=== PATIENT | female | born 1955 | race Caucasian/White ===

== ENCOUNTER → 2024-01-20 | Outpatient (CLI) | payer MEDICARE ==
[2024-01-20 18:25] LABS: INR 1.06 sec (0.93-1.11); Prothrombin Time 11.4 sec (9.9-11.9)
[2024-01-20 20:13] LABS: Basophils # (A) 0.03 X 10*3/uL (0.00-0.10); Basophils % (A) 0.4 %; Eosinophils # (A) 0.05 X 10*3/uL (0.04-0.35); Eosinophils % (A) 0.7 %; HCT 43.9 % (37.2-46.3); Lymphocytes # (A) 2.66 X 10*3/uL (0.90-5.00); Lymphocytes % (A) 38.6 %; MCH 30.8 pg (27.0-32.0); MCHC 34.2 g/dL (32.0-37.0); MCV 90.1 FL (80.0-97.0); Mean Platelet Volume 10.2 FL (9.5-12.2); Monocytes # (A) 0.36 X 10*3/uL (0.20-1.00); Monocytes % (A) 5.2 %; NRBC Per 100 WBC 0 X 10*3/uL (0.00-0.01); Neutrophils # (A) 3.77 X 10*3/uL (1.80-7.70); Neutrophils % (A) 54.8 %; Platelet Count 248 X 10*3/uL (140-440); RBC 4.87 X 10*6/uL (4.10-5.20); RDW 12.5 % (11.5-14.5); WBC 6.89 X 10*3/uL (4.50-10.00)
[2024-01-20 20:48] LABS: BUN/Creat Ratio 16.88 Ratio (12.00-20.00); Blood Urea Nitrogen 13.5 mg/dL (9.0-27.0); Glucose 80 mg/dL (70-110)
[2024-01-20 20:49] LABS: Calcium 10.5 mg/dL (8.7-10.3); Carbon Dioxide 21.5 mmol/L (21.6-31.8); Chloride 103 mmol/L (96-109); Potassium 4.2 mmol/L (3.5-5.5); Sodium 140 mmol/L (135-145)
== END | disposition home or self-care (01) ==
LOC: LABPAT 13:46
PROVIDERS: ATTEND Orthopaedic Surgery
DX: Z01.818 Encounter for other preprocedural examination (principal); M16.11 Unilateral primary osteoarthritis, right hip
CPT/HCPCS: 36415; 80048; 85025; 85610; 93005

== ENCOUNTER → 2024-02-10 | Outpatient (CLI) | payer MEDICARE | END | disposition home or self-care (01) | LOC: LABPAT 09:42 | PROVIDERS: ATTEND Orthopaedic Surgery | DX: Z01.812 Encounter for preprocedural laboratory examination (principal); M16.11 Unilateral primary osteoarthritis, right hip; Z22.322 Carrier or suspected carrier of Methicillin resistant Staphylococcus aureus | CPT/HCPCS: 86850; 86900; 86901; 87070 ==

== ENCOUNTER 2024-02-16 08:16 | Day surgery (SDC) | payer MEDICARE ==
--- NOTE | 2024-02-15 13:09 | HP ---
HISTORY AND PHYSICAL DATE OF SURGERY: 02/16/2024. HISTORY OF PRESENT ILLNESS: Marla Mao is a 68-year-old patient seen with symptomatic right hip osteoarthritis. We discussed options. She elected to proceed with direct anterior right total hip arthroplasty. Consent was obtained, clearance was provided by Deloris Sheikh NP PAST MEDICAL HISTORY: Noncontributory. PAST SURGICAL HISTORY: Noncontributory. DAILY MEDICATIONS: Naprosyn. ALLERGIES: Minocin. SOCIAL HISTORY: She denies current tobacco use. PHYSICAL EVALUATION OF THE RIGHT HIP: She has limited range of motion with significant/severe pain. Hip impingement sign is positive. Distal neurovascular exam is intact. She has diffuse tenderness about the hip girdle. IMAGING STUDIES: Radiographs of the right hip revealed severe osteoarthritic changes. IMPRESSION: Right hip osteoarthritis. PLAN: Direct anterior right total hip arthroplasty. MMODL / IJN: [id number] /
[~2024-02-16 08:16] MED LIST: TRANEXAMIC 1,000 MG/100ML-NACL 1,000 MG in SALINE 1 100ML.BAG IVPB PRN
[2024-02-16] MEDS ORDERED: MIDAZOLAM 2 MG/2 ML VIAL IV PRN (08:29)
[2024-02-16] MEDS: IV FLUID CONTINUATION 1,000 ML IV ONE (08:49)
[2024-02-16] MEDS: LACTATED RINGERS 1,000 ML IV SCH (08:50)
[2024-02-16] MEDS: MELOXICAM 7.5 MG TAB PO PRN (08:54)
[2024-02-16] MEDS: ACETAMINOPHEN TAB 500 MG TAB PO PRN (08:54)
[2024-02-16] MEDS: ONDANSETRON 4 MG/2 ML VIAL IVP ONE (08:54)
[2024-02-16] MEDS: DEXAMETHASONE SOD PHOSPHATE 4 MG/ML 1 ML VIAL IV ONE (08:55)
[2024-02-16] MEDS: VANCOMYCIN 1,000 MG in SODIUM CHLORIDE 0.9% 250 ML IVPB PRN (09:08)
[2024-02-16] MEDS: MIDAZOLAM 2 MG/2 ML VIAL IVP ONE (09:30)
--- NOTE | 2024-02-16 09:40 | P.ANPRN ---
Procedure Note - Anesthesia - Nerve Block Performed Right Chau Single Time Out Performed: Yes Date of Procedure: 02/16/24 Procedure Start Time: :30 Procedure Stop Time: :35 Location of Patient: PreOp Indication: Acute Post-Operative Pain, Analgesia, Requested by Surgeon Sedation Type: Sedate with meaningful contact maintained Preparation: Sterile Prep Position: Supine Catheter: None Needle Types: Pajunk Needle Gauge: 21 Ultrasound used to visualize needle placement: Yes Ultrasound used to observe medication spread: Yes Injectate: 0.5% Ropivacaine (see comment for volume) ([id number]+decadron 4mg) Blood Aspirated: No Pain Paresthesia on Injection Noted: No Resistance on Injection: Normal Image Stored and Saved: Yes Events: Uneventful and Well Tolerated
[2024-02-16] MEDS ORDERED: GLYCOPYRROLATE 0.2 MG/ML 2 ML VIAL ONE (10:07)
[2024-02-16] MEDS ORDERED: MIDAZOLAM 2 MG/2 ML VIAL ONE (10:07)
[2024-02-16] MEDS ORDERED: ROPIVACAINE 5 MG/ML 30 ML VIAL ONE (10:07)
[2024-02-16] MEDS ORDERED: ROCURONIUM 10 MG/ML (5 ML VIAL) IV ONE (10:07)
[2024-02-16] MEDS ORDERED: TRANEXAMIC 1,000 MG/100ML-NACL PREMIX BAG ONE (10:07)
[2024-02-16] MEDS ORDERED: SUCCINYLCHOLINE CHLORIDE 200 MG/10 ML VIAL IV ONE (10:07)
[2024-02-16] MEDS ORDERED: KETAMINE HCL IN 0.9 % NACL 50 MG/5 ML SYRINGE ONE (10:07)
[2024-02-16] MEDS ORDERED: PHENYLEPHRINE-0.9% NACL SYG 1,000 MCG/10 ML SYRINGE ONE (10:07)
[2024-02-16] MEDS ORDERED: LIDOCAINE 1% INJ 10MG/ML (20 ML MDV) ONE (10:07)
[2024-02-16] MEDS ORDERED: NEOSTIGMINE 1 MG/ML 10 ML VIAL ONE (10:07)
[2024-02-16] MEDS ORDERED: DEXAMETHASONE SOD PHOSPHATE 4 MG/ML 1 ML VIAL ONE (10:07)
[2024-02-16] MEDS ORDERED: fentaNYL (PF) 50 MCG/ML 2 ML AMP ONE (10:07)
[2024-02-16] MEDS ORDERED: PROPOFOL 10 MG/ML 20 ML VIAL IV ONE (10:07)
[2024-02-16] MEDS: ceFAZolin 1,000 MG in SODIUM CHLORIDE 0.9% 1,000 ML IRRIGATION ONE (10:41)
[2024-02-16] MEDS: LACTATED RINGERS 1,000 ML IV ONE ×2 (11:47→15:01)
[2024-02-16] MEDS ORDERED: NALOXONE 0.4 MG/ML 1 ML VIAL IV PRN (11:53)
[2024-02-16] MEDS ORDERED: HYDROcodone/APAP 5-325MG 1 EACH TAB PO PRN (11:53)
[2024-02-16] MEDS ORDERED: HYDROmorphone 0.5 MG/0.5 ML SYRINGE IVP PRN ×3 (11:53)
[2024-02-16] MEDS ORDERED: ONDANSETRON 4 MG/2 ML VIAL IVP PRN (11:53)
--- NOTE | 2024-02-16 11:53 | P.OP ---
Date of Procedure: 02/16/24 Preoperative Diagnosis: Right hip osteoarthritis Postoperative Diagnosis: Right hip osteoarthritis Procedure(s) Performed: Direct anterior right total hip arthroplasty Implants: 1. DePuy Corail size 12 high offset press-fit femoral stem 2. DePuy Lilly 54 mm press-fit acetabular shell 3. DePuy Lilly neutral polyethylene acetabular liner 36 mm ID 54 mm OD 4. Biolox delta ceramic femoral head +5 36 mm Anesthesia: GETA, regional (Erector spinae block) Surgeon: Irvin Sheikh E Merchant #1: Zeeshan Gagnon Estimated Blood Loss (ml): 40 Pathology: none sent Condition: stable Disposition: PACU Indications for Procedure: 68-year-old patient seen with symptomatic right hip osteoarthritis. After having treatment options discussed, she elected to proceed with direct anterior right total hip arthroplasty. Operative Findings: See description of procedure Description of Procedure: The patient was taken to the operative suite. Patient underwent a general anesthetic by the department of anesthesia. Patient was then transferred to the [facility] table. Patient was given preoperative IV antibiotics and TXA. Both lower extremities were placed in standard leg spars. The hip was then prepped and draped in the normal sterile orthopedic fashion. A standard anterior incision was made beginning 3 cm lateral and 1 cm distal to the ASIS extending 10 cm. Dissection was then carried down through the subcutaneous soft tissues down to the fascia overlying the tensor fascia erik. An incision was now made through the fascia. Careful dissection was taken down exposing the tensor fascia erik muscle. A Cobra retractor was now placed along the medial femoral neck and a second one along the lateral femoral neck. The venous circumflex vessels were now identified, cauterized and clipped. We identified the anterior hip capsule. An incision was made through the hip capsule along the lateral border. I performed a partial anterior capsulectomy. Retractors were now placed around the femoral neck itself. A femoral neck cut was now made with a sagittal saw. It was completed with an osteotome at the lateral neck area. The femoral head was now removed without difficulty. The extremity was now rotated to 60 of external rotation. It was locked in position. Residual labrum was now debrided out. Serial reaming was performed of the acetabulum while Tanmay LUDWIG assisted holding an anterior retractor for exposure. Once we reached the appropriate size and a trial was position and fit nicely. The appropriate size was now chosen opened and made available. It was introduced into the acetabulum without difficulty. The C-arm/fluoroscopy was now brought into the operative field. We made sure we had a true AP pelvic view. We now under direct C-arm/fl uoroscopy introduced into the acetabular component with appropriate version and inclination. I held the cup in appropriate position well Tanmay LUDWIG used a mallet to seat the acetabular component. I noted the component now to be well seated and stable. Acetabular cup introduce her was removed. The C-arm was pulled back. An appropriate liner was introduced and clicked into position. It was felt to be stable. At this point retractors were removed. The extremity was now placed into 140 external rotation with no traction. The leg was now dropped to the ground and adducted. Appropriate retractors were now positioned along the proximal femur. We also placed our femoral look into position. Additional capsular releasing was performed to gain access to the proximal femur. We now used a box osteotome. A canal finder was now utilized. Serial broaching was now performed with the assistance of Tanmay LUDWIG tapping the broaches down with a mallet while held the broach in appropriate rotation and position. This was done until we reached the appropriate size with good overall rotational stability. Appropriate calcar planing was performed. A trial head/neck was placed into position. The hip was now reduced. The C- arm/fluoroscopy was brought back into the operative field. I obtained an AP pelvis was demonstrated adequate leg length alignment. The trial components mikala eared adequately sized and positioned. The C-arm/fluoroscopy was pulled back. Retractors were repositioned and the hip was dislocated. The leg was again taken down to the ground and adducted. Appropriate retractors were repositioned as well as the femoral hook. All trial components were removed. The femoral implant was opened along with the femoral head. The femoral implant was introduced on the appropriate handle into our pre-broached area. I held the component position well Tanmay LUDWIG used a mallet to seat the femoral component. The femoral component was now noted to be well seated and stable.. The femoral head was introduced with good positioning and fixation noted. Retractors were now removed. The hip was now reduced. There appeared be good positioning of the hip confirmed on intraoperative fluoroscopy. Spot films were obtained to document this. A second gram of TXA was given. Bipolar cautery had been utilized intermittently through the procedure for hemostasis. The wound was irrigated copiously with pulse lavage mechanical irrigation. The fascia was repaired with Vicryl suture. The subcutaneous soft tissues were repaired in layers with Vicryl suture. The skin was approximated with pernio/Dermabond. Sterile dressings were applied. Patient was then awakened, transferred to a bed and taken to recovery in stable condition. Tanmay LUDWIG assisted with the complex procedure.
[2024-02-16 12:16] VITALS: TEMP 96.9
--- NOTE | 2024-02-16 12:17 | FL ---
EXAMINATION TYPE: FL guidance operating room, XR Hip Limited RT Intraoperative/procedural fluoroscopi c services were provided. Total fluoroscopy time is 11 seconds with a total of 2 submitted images to PACS. Please see the operative/procedural note for further details. DAP: 0.5252 Gycm2
[2024-02-16] MEDS: HYDROmorphone 0.5 MG/0.5 ML SYRINGE IVP PRN (12:25)
[2024-02-16 12:54] VITALS: RESP 16
[2024-02-16] MEDS: HYDROcodone/APAP 7.5-325MG 1 EACH TAB PO PRN (13:46)
[2024-02-16 17:38] VITALS: BP 118/74; PULSE 70
== END 2024-02-16 17:39 | disposition home health service (06) ==
LOC: OR 08:16
PROVIDERS: ATTEND Orthopaedic Surgery
DX: M16.11 Unilateral primary osteoarthritis, right hip (principal); G89.18 Other acute postprocedural pain; Z85.828 Personal history of other malignant neoplasm of skin; Z79.899 Other long term (current) drug therapy; Z88.8 Allergy status to other drugs, medicaments and biological substances; Z98.890 Other specified postprocedural states
CPT/HCPCS: 97530; 97161; 64447; 73501; 27130; C1776; J2250; J3370; J0330; J1100; J2710; J2405; J0690; J2001; J3010; J2795; J2704; J1170; J2371

== ENCOUNTER 2024-05-27 07:11 | Day surgery (SDC) | payer MEDICARE ==
[2024-05-20 15:46] VITALS: BMI 22.1
[2024-05-27] MEDS ORDERED: HYDROmorphone 0.5 MG/0.5 ML SYRINGE IVP PRN (07:29)
[2024-05-27] MEDS ORDERED: fentaNYL (PF) 50 MCG/ML 2 ML AMP IVP PRN (07:29)
[2024-05-27] MEDS ORDERED: MIDAZOLAM 2 MG/2 ML VIAL IV PRN (07:29)
[2024-05-27] MEDS: LACTATED RINGERS 1,000 ML IV SCH (07:50)
[2024-05-27] MEDS: LIDOCAINE 1% (10MG/ML) FOR IV START INTRADERMA PRN (07:50)
[2024-05-27] MEDS: IV FLUID CONTINUATION 1,000 ML IV ONE (07:50)
[2024-05-27] MEDS: ONDANSETRON 4 MG/2 ML VIAL IVP ONE (08:01)
[2024-05-27] MEDS: DEXAMETHASONE SOD PHOSPHATE 4 MG/ML 1 ML VIAL IV ONE (08:02)
[2024-05-27 08:06] LABS: Basophils % (A) 1 %; Eosinophils % (A) 1 %; HCT 43.5 % (34.0-46.0); Lymphocytes # (A) 1.9 k/uL (1.0-4.8); Lymphocytes % (A) 44 %; MCH 31.1 pg (25.0-35.0); MCHC 34.4 g/dL (31.0-37.0); MCV 90.5 fL (80.0-100.0); Monocytes # (A) 0.2 k/uL (0-1.0); Monocytes % (A) 5 %; Neutrophils # (A) 2.1 k/uL (1.3-7.7); Neutrophils % (A) 49 %; Platelet Count 229 k/uL (150-450); RBC 4.81 m/uL (3.80-5.40); RDW 12.7 % (11.5-15.5); WBC 4.2 k/uL (3.8-10.6)
[2024-05-27] MEDS ORDERED: LIDOCAINE 1% INJ 10MG/ML (20 ML MDV) ONE (08:25)
[2024-05-27] MEDS ORDERED: KETOROLAC 15 MG/ML 1 ML VIAL ONE (08:25)
[2024-05-27] MEDS ORDERED: PHENYLEPHRINE 10 MG/ML VIAL ONE (08:25)
[2024-05-27] MEDS ORDERED: PROPOFOL 10 MG/ML 20 ML VIAL IV ONE (08:25)
[2024-05-27] MEDS ORDERED: MIDAZOLAM 2 MG/2 ML VIAL ONE (08:25)
[2024-05-27] MEDS ORDERED: fentaNYL (PF) 50 MCG/ML 2 ML AMP ONE (08:25)
[2024-05-27] MEDS: BUPIVACAINE (PF) 0.25% 30 ML VIAL SQ ONE ×2 (09:02→09:05)
--- NOTE | 2024-05-27 09:09 | P.OP ---
Date of Procedure: 05/27/24 Preoperative Diagnosis: Left knee prepatellar bursitis Postoperative Diagnosis: Left knee prepatellar bursitis Procedure(s) Performed: Left knee bursectomy Anesthesia: MORALES, local Surgeon: Irvin Sheikh Spanish Instructor #1: Zeeshan Gagnon Estimated Blood Loss (ml): 4 Pathology: none sent Condition: stable Disposition: PACU Indications for Procedure: 68-year-old patient seen with a symptomatic left knee prepatellar bursa. After discussing treatment options the patient opted to proceed with a left knee bursectomy. Operative Findings: see description of procedure Description of Procedure: Patient was taken to the operative suite. She received preoperative IV antibiotics. She underwent a general anesthetic by department anesthesia. A well-padded tourniquet placed proximal left thigh. Left lower extremity was prepped and draped in a normal sterile orthopedic fashion. We elevated the extremity insufflated the tourniquet to 300. I made an incision over the area of the bursa sharply through skin. I dissected down to the bursa. I now carefully dissected the bursa I would not removed it without difficulty. I evaluated the wound and made sure was no residual bursal tissue and there was not. The wound was irrigated. We achieved additional hemostasis via electrocautery. The subcutaneous soft tissues were tacked down with 2-0 Vicryl. The skin was repaired with a running subcuticular suture augmented with skin glue. We injected quarter percent plain Marcaine for postoperative analgesia. The tourniquet was now deflated and noted immediate capillary refill. Sterile dressings and Iron bandage were applied. Patient was now awakened, transferred to a bed and recovery in stable condition. Mary LUDWIG assisted with this procedure.
[2024-05-27 09:35] VITALS: TEMP 97.2
[2024-05-27 10:24] VITALS: RESP 16
[2024-05-27 11:05] VITALS: BP 132/74; PULSE 63
--- NOTE | 2024-05-27 14:50 | HP ---
HISTORY AND PHYSICAL DATE OF SURGERY: 05/27/2024. HISTORY OF PRESENT ILLNESS: Marla Mao is a patient seen with symptomatic left knee bursitis. We discussed options. She elected to proceed with left knee bursectomy. Consents obtained. PAST MEDICAL HISTORY: Noncontributory. PAST SURGICAL HISTORY: Left total hip arthroplasty. DAILY MEDICATIONS: Naprosyn. ALLERGIES: Minocin. SOCIAL HISTORY: She denies tobacco use. PHYSICAL EVALUATION OF THE LEFT KNEE: She has a 3 x 3 cm soft tissue mass along the anterior aspect of left knee without evidence for infection. Range of motion is 0-130. There is some prepatellar swelling. No intra-articular effusion. Ligaments stable. Hip rotation without pain. Distal neurovascular exam intact. IMAGING STUDIES: Left knee radiographs reveal mild osteoarthritis. IMPRESSION: Left knee symptomatic patellar bursitis. PLAN: Left knee bursectomy. MMODL / IJN: [id number] /
== END 2024-05-27 11:04 | disposition home or self-care (01) ==
LOC: OR 07:11
PROVIDERS: ATTEND Orthopaedic Surgery
DX: M70.42 Prepatellar bursitis, left knee
CPT/HCPCS: 85025

== ENCOUNTER → 2025-02-11 | Day surgery (SDC) | payer MEDICARE ==
[2025-02-09 16:02] VITALS: BMI 22.7
[~2025-02-11] MED LIST changes: +LIDOCAINE 1% (10MG/ML) FOR IV START INTRADERMA PRN; +PROPOFOL 10 MG/ML 20 ML VIAL IV ONE; -TRANEXAMIC 1,000 MG/100ML-NACL 1,000 MG in SALINE 1 100ML.BAG IVPB PRN
[2025-02-11 11:40] VITALS: TEMP 98
[2025-02-11] MEDS: LACTATED RINGERS 1,000 ML IV SCH (11:53)
[2025-02-11] MEDS: IV FLUID CONTINUATION 1,000 ML IV ONE (11:54)
[2025-02-11 13:00] VITALS: RESP 16
--- NOTE | 2025-02-11 13:13 | P.PCN ---
Date of Procedure: 02/11/25 Procedure(s) Performed: BRIEF HISTORY: Patient is a 69-year-old pleasant white female scheduled for an elective colonoscopy as a part of evaluation of lower abdominal pain and change in bowel habits for the last few months duration. PROCEDURE PERFORMED: Colonoscopy. PREOPERATIVE DIAGNOSIS: Lower abdominal pain and change in bowel habit. IV sedation per Anesthesia. PROCEDURE: After informed consent was obtained, the patient, was brought into the endoscopy unit. IV sedation was administered by Anesthesia under continuous monitoring. Digital rectal examination was normal. Initially the Olympus CF-160 flexible video colonoscope was then inserted in the rectum, gradually advanced into the cecum with moderate to severe difficulty. Careful examination was performed as the scope was gradually being withdrawn. Ileocecal valve and the appendiceal orifice were visualized and appeared normal. Prep was excellent. Mucosa of the cecum, ascending colon, transverse colon, descending colon, sigmoid colon, and rectum appeared normal. Scattered sigmoid diverticulosis. Retroflexion was performed in the rectum and no lesions were seen. The patient tolerated the procedure well. IMPRESSION: Normal-appearing colon from rectum to cecum with no evidence of colorectal neoplasia Scattered sigmoid diverticulosis. RECOMMENDATIONS: Findings of this examination were discussed with the patient as well as her family. She was advised to continue with osmotic laxatives on a regular basis and high-fiber diet. Recommended repeat screening colonoscopy in 10 years..
[2025-02-11 13:29] VITALS: BP 115/86; PULSE 70
== END ==
LOC: ORWHC2ENDO 10:37
PROVIDERS: ATTEND Internal Medicine Gastroenterology
DX: K57.30 Diverticulosis of large intestine without perforation or abscess without bleeding (principal); Z87.891 Personal history of nicotine dependence; Z89.522 Acquired absence of left knee; Z89.621 Acquired absence of right hip joint; Z88.1 Allergy status to other antibiotic agents
CPT/HCPCS: 45378; J2704